=== PATIENT | female | born 1985 | race Caucasian/White ===

== ENCOUNTER 2016-12-25 17:14 | Outpatient (CLI) | payer OTHER ==
[~2016-12-25] VITALS: Ht 162.6 cm; Wt 103.0 kg
[~2016-12-25 17:14] MED LIST: ANUS2.5C2 PR; MOM30SS PO; MOTR200T44 PO; TYLE167L PO
[2016-12-25 17:32] VITALS: BP 139/88
[2016-12-25] MEDS ORDERED: PRENTAB9 PO (17:41)
[2016-12-25] MEDS ORDERED: LABE20TAB PO (17:41)
[2016-12-25] MEDS ORDERED: ECOT81TA5 PO (17:41)
[2016-12-25 18:26] VITALS: BP 122/57
--- NOTE | 2016-12-25 19:19 | IPNPDOC ---
Text Note Date of Service The patient was seen on 12/25/16. NOTE [id number] @ 1911 31 yo presents to L&D from clinic d/t non-reactive NST. She is being monitored in clinic for CHTN and BMI=40 @ 19 wks. This was her first APFT in clinic. S: states she is comfortable. Denies DFM, LOF, VB and CTXs O: VS- WNL, afebrile FHR-150, min-mod variability, no accels, no decels CTX- none A: 31 yo presented to L&D for non-reactive NST in clinic. FHR tracing remains unchanged P: continue prolonged monitoring, consulted with Dr. Orellana, reviewed FHR tracing with him. Agrees with above plan. Dr. Orellana given report @ 192 VS,Fishbone, I+O VS, Fishbone, I+O Vital Signs Date Time Temp Pulse Resp B/P (MAP) Pulse Ox O2 Delivery O2 Flow Rate FiO2 12/25/16 18:26 103 16 122/57 (78) 12/25/16 17:32 99.0 96 Room Air WILTON MITCHELL CNM Dec 25, 2016 19:19
--- NOTE | 2016-12-25 21:10 | REPUSA ---
CLINICAL HISTORY: Abnormal nonstress test. 32 week 2 day gestation. TECHNIQUE: OB biophysical profile with nonstress testing ultrasound COMPARISON: No study for comparison is available at the time of interpretation. Live IUP with heart rate 141 bpm. Vertex position. JUAN RAMON 17.7 cm, within normal limits. Biophysical profile 6/8 (0 breathing) Normal umbilical Doppler, resistive index 0.65, S/D 2.85, normal. No nuchal cord. Posterior placenta without previa or abruption. Cervical length 2.7 cm with closed os. Full anatomic survey was not performed at this time. IMPRESSION: Live IUP. Reduced biophysical profile 10/25, (breathing 0). Otherwise normal findings.
[2016-12-25] MEDS ORDERED: LABETALOL 200 MG TAB PO ONE (22:45)
[2016-12-25] MEDS: BETAMETHASONE SOLUSPAN 6MG/ML INJ 5ML (J0702) IM SCH (22:51)
--- NOTE | 2016-12-26 00:21 | HPE ---
DATE OF ADMISSION: 12/25/2016 A 31-year-old 4, para 3 at 32 and 2 weeks of gestation with a history of chronic hypertension, on labetalol 200 mg by mouth twice a day. She had monitoring today for the first time, and she had an nonstress test (NST) which is nonreactive, and she was here for continuous monitoring. While here, she still had a nonreactive NST, and we elected to go ahead and do a biophysical profile. The biophysical profile shows a live intrauterine , heart 141, vertex, JUAN RAMON was 17.7. No breathing was noted. Doppler flow resistant index was normal. S/D ratio was normal. No cord, the placenta was normal. Cervical length 2.7 cm. Still having a nonreactive NST. Her past history: In 2008, at 40 weeks, spontaneous vaginal delivery, 6 pounds 13 ounces female. In 2010, at 40 weeks, spontaneous vaginal delivery, 7 pounds 3 ounces male. In 2013, at 40 weeks, spontaneous vaginal delivery, gestational diabetes, 7 pounds 5 ounces. She was an aGDM 1. Her labs A+, HIV negative, hepatitis negative, RPR negative. Rubella immune. Varicella immune. Urine negative. Gonorrhea and chlamydia are negative. Her initial 1-hour glucose was 112, her 28 week GTT was 153. She had a 3-hour GTT with a fasting of 95, 1-hour 159, 2-hour 135 and 3-hour 113. Blood pressure today is 122/57, respirations are 16, pulse 103, temperature is 99.0. Her urine is 1.005, pH 5 negative. Her risk factor is an NST that is nonreassuring, her body mass index (BMI) is over 40, she has chronic hypertension, and there was an echogenic focus in the heart. On examination, she is not distressed. Symphysis fundus height is 32. Category II-III strip. With IV fluids, baby perks up and becomes almost category I. Biophysical was 6 out of 8 with no breathing. The rest of the examination is unremarkable. She is normocephalic, atraumatic. Neck: Full range of motion. Pupils equal and reactive to light. Distal pulses are symmetric. No evidence of deep vein thrombosis (DVT), pulmonary embolus (PE) or superficial phlebitis. Lungs are clear bilaterally to bases. No wheezes or rhonchi. No costovertebral angle tenderness. Nontender uterus. Four quadrant bowel sounds are noted. No rashes, lesions or pruritus. No arthralgia, myalgia. No complaints of cough, wheeze, shortness of breath or dyspnea on exertion. No chest pain. No bleeding. Neuro complete. No incontinence, urgency, frequency. No nausea, vomiting, diarrhea or constipation. No diabetic issues by her 3-hour GTT. DIRECTOR OF IT OPERATIONS is unremarkable. Past medical history and surgical history are unremarkable. Family history noncontributory. She does not smoke or drink or abuse drugs. There is no domestic violence. We have a lady at 32 and 2+ with a NST that is nonreassuring, a biophysical of 6 out of 8 with no breathing. Our plan is to continue IV fluids, continuous monitoring, steroid in order to make her steroid complete unless she needs to be delivered, and labetalol continue 200 mg twice a day. The patient and expressed understanding of the situation. We spent an hour discussing this. Patient is undelivered but on continuous monitoring. Copy To: Domenico Lagos [facility]
[2016-12-26 07:22] VITALS: BP 119/68
[2016-12-26] MEDS ORDERED: LABETALOL 200 MG TAB PO SCH (09:00)
[2016-12-26 09:03] VITALS: BP 116/57
[2016-12-26 09:04] VITALS: BP 116/57
[2016-12-26] MEDS: BETAMETHASONE SOLUSPAN 6MG/ML INJ 5ML (J0702) IM SCH (10:54)
--- NOTE | 2016-12-26 16:11 | REP ---
OB ULTRASOUND AND BIOPHYSICAL PROFILE: Real-time sonographic evaluation of the gravid uterus is performed. There is a single living intrauterine gestation with estimated gestational age of 32 weeks 3 days, EDC 02/17/2017. heart rate 142 beats per minute. Amniotic fluid within normal limits, JUAN RAMON 15.5 with a normal range of 8.5 to 24.3. Biophysical profile score is 8 out of 8. S/D ratio 2.54, within normal range. RI 0.61, within normal range. position vertex. Placenta is posterior and grade 1 with no previa or abruption. IMPRESSION: Biophysical profile score 8 out of 8. Signed by Murtaza Potter MD 12/27/2016 01:27 P
== END 2016-12-26 14:26 | disposition home or self-care (01) ==
LOC: M LDO 17:14
PROVIDERS: ATTEND Midwife
DX: O28.8 Other abnormal findings on antenatal screening of mother (principal); O10.913 Unspecified pre-existing hypertension complicating pregnancy, third trimester; Z3A.32 32 weeks gestation of pregnancy; Z79.899 Other long term (current) drug therapy
CPT/HCPCS: 59025; 76815; 76819; 76820; 96372; J0702

== ENCOUNTER 2016-12-28 15:04 | Outpatient (CLI) | payer OTHER ==
[~2016-12-28] VITALS: Ht 162.6 cm; Wt 104.0 kg
[~2016-12-28 15:04] MED LIST changes: +ECOT81TA5 PO; +LABE20TAB PO; +PRENTAB9 PO
[2016-12-28 15:23] VITALS: BP 113/58
[2016-12-28] MEDS ORDERED: PRENTAB9 PO (15:26)
[2016-12-28] MEDS ORDERED: LABE20TAB PO (15:26)
[2016-12-28] MEDS ORDERED: ASPI1TAB15 PO (15:27)
== END 2016-12-28 18:21 | disposition home or self-care (01) ==
LOC: M LDO 15:04
PROVIDERS: ATTEND Obstetrics & Gynecology
DX: O28.3 Abnormal ultrasonic finding on antenatal screening of mother (principal); Z3A.32 32 weeks gestation of pregnancy

== ENCOUNTER → 2017-01-22 | Outpatient (CLI) | payer OTHER ==
[~2017-01-22] MED LIST changes: +ACET50TA PO; +ASPI1TAB15 PO; +COLA100C5 PO; +IBUP-1114 PO; +LABE30TA PO
--- NOTE | 2017-01-22 17:38 | REP ---
Clinical: well-being. Nonreactive stress test. Comparison: 12/26/2016 . Findings: Examination demonstrates a single live advanced in cephalic presentation. motion is identified by technologist. Placenta is noted posterior fundally and grade I without evidence for placenta previa or abruption. Amniotic fluid volume is normal. Gestational age by LMP 36 weeks 2-day with JREEMIAH is 02/17/2017 . FHR equals 140 beats per minute. Biophysical profile score = 8/8. Amniotic fluid index = 16.6 cm (7.6 [birth year]1927) Umbilical cord SD ratio = 2.68 (1.88 - 2.88). Impression: Single live advanced gestation in cephalic presentation. Biophysical profile score equals 8/8. Amniotic fluid index within normal range. Signed by Weston Barber MD 01/22/2017 05:31 P
== END ==
LOC: M RAD 16:21
PROVIDERS: ATTEND Obstetrics & Gynecology
DX: Z34.83 Encounter for supervision of other normal pregnancy, third trimester (principal); Z3A.36 36 weeks gestation of pregnancy

== ENCOUNTER 2017-02-12 11:10 | Inpatient (IN) | payer OTHER ==
[2017-02-12] VITALS (21 sets, daily range): BP systolic 106–150; BP diastolic 55–85
[~2017-02-12] VITALS: Ht 162.6 cm; Wt 111.5 kg
[~2017-02-12 11:10] MED LIST changes: -ACET50TA PO; -COLA100C5 PO; -IBUP-1114 PO; -LABE30TA PO
[2017-02-12] MEDS ORDERED: LR 1,000 ML IV SCH (13:00)
[2017-02-12] MEDS ORDERED: OXYTOCIN DRIP 30 UNITS in APPROPRIATE DILUENT 1 EA IV SCH (13:00)
[2017-02-12] MEDS ORDERED: LACTATED RINGER'S 1000 ML IV ONE (13:15)
[2017-02-12 13:16] LABS: MEAN CORPUSCULAR VOLUME 74.9 fl (80.0-96.0); RED CELL DISTRIBUTION WIDTH 14.5 % (11.5-14.5); WHITE BLOOD COUNT 11.8 10^3/uL (4.0-10.0)
--- NOTE | 2017-02-12 19:52 | HPE ---
DATE OF ADMISSION: 02/12/2017 A 31-year-old 4, para 3, at 39 weeks of gestation admitted for induction of labor because of chronic hypertension, BMI of 41.7 and non-reassuring heart strip. Her risk factors are chronic hypertension and BMI 40.1. PAST HISTORY: 1. 2008: Spontaneous vaginal delivery 40 weeks, 6 pounds 13 ounces female. 2. 2010: At 40 weeks, spontaneous vaginal delivery 7 pounds 3 ounces. 3. 2013: At 40 weeks, spontaneous vaginal delivery 7 pounds 5 ounces with an gestational diabetes mellitus treated with diet (A1GDM) history. HISTORY: Her labs are A positive. HIV negative. Hepatitis negative. RPR negative. Rubella immune. Varicella immune. Urine was negative. Gonorrhea and chlamydia negative. One-hour glucose 112. Her 28-week glucose tolerance test (GTT) was 153. She subsequently had a 3-hour GTT 95, 159, 135, and 113. She is group B Streptococcus (GBS) negative. On examination, no distress. Symphysis fundus height is 41, vertex height -3, posterior thick multiparous os and a category two strip. Blood pressure 130/68, respirations are 20, pulse 81, temperature 98.6. Urine 1005, pH 7, negative, negative. The rest of the examination: She is normocephalic, atraumatic. Neck: Full range of motion. Pupils equal and reactive to light. Reflexes are normal pitting edema plus 1 at the ankles due to weight. Distal pulses symmetric. No evidence of deep venous thrombosis (DVT), pulmonary embolism (PE), or superficial phlebitis. Lungs are clear bilaterally to bases. No wheezes or rhonchi. No costovertebral angle (CVA) tenderness. Symphysis fundus height is appropriate. Four quadrant bowel sounds are noted. No rashes, lesions or pruritus. No arthralgia, myalgia. No complaints of cough, wheezes, shortness of breath or dyspnea on exertion. No chest pain. No bleeding. Neuro complete. No incontinence, urgency or frequency. No nausea, vomiting, diarrhea or constipation. No diabetic issues. Past her three-hour GTT. PAST MEDICAL, SURGICAL AND FAMILY HISTORY: Noncontributory. She does not smoke, drink, abuse drugs. No domestic violence. She is to a soldier. We discussed the plan of management in the form of IV Pitocin as opposed to Cytotec because of the category two strip. I offered her an epidural, which she declined, and plan on an artificial rupture of membranes (AROM) at the appropriate interval.
[2017-02-12] MEDS: LABETALOL 200 MG TAB PO SCH (21:00)
[2017-02-12] MEDS ORDERED: FENTANYL 2MCG/ML ROPIVACAINE 0.2% IN 0.9% NACL 200ML IVBAG As Ordered ONE (23:47)
[2017-02-13] VITALS (23 sets, daily range): BP systolic 118–168; BP diastolic 56–106
[2017-02-13] MEDS ORDERED: FENTANYL/ROPIVACAINE/NACL BAG 200 ML EPIDURAL SCH (00:08)
[2017-02-13] MEDS ORDERED: EPIDURAL/PCA KEYS XX PRN (00:08)
[2017-02-13] MEDS ORDERED: EPIDURAL COMMENT XX SCH (00:08)
[2017-02-13] MEDS ORDERED: ONDANSETRON 4MG/2ML VIAL (J2405) IV PRN (00:08)
[2017-02-13] MEDS ORDERED: LACTATED RINGER'S 1000 ML IV PRN (00:08)
[2017-02-13] MEDS ORDERED: diphenhydrAMINE INJ 50MG/ML VIAL (J1200) IV PRN (00:08)
[2017-02-13] MEDS ORDERED: NALOXONE INJ 0.4 MG/1 ML VIAL (J2310) IV PRN (00:08)
[2017-02-13] MEDS ORDERED: ePHEDrine SULFATE 25 MG/5 ML(5MG/ML) SYRINGE IV PRN (00:08)
[2017-02-13] MEDS ORDERED: REFRIGERATOR IV KEYS XX PRN (00:08)
[2017-02-13] MEDS ORDERED: MEASLES,MUMPS,RUBELLA VACCINE INJ (MMR-II) (90707) SC SCH (01:15)
[2017-02-13] MEDS ORDERED: ANUSOL HC CREAM 30GM TOP PRN (01:15)
[2017-02-13] MEDS ORDERED: MOM 30ML SUSPENSION UDC PO PRN (01:15)
[2017-02-13] MEDS ORDERED: RHOGAM 300 MCG (1500 IU) INJ (J2790) IM SCH (01:15)
[2017-02-13] MEDS ORDERED: ACETAMINOPHEN 500 MG TAB PO PRN (01:15)
[2017-02-13] MEDS ORDERED: DOCUSATE SODIUM 100 MG CAP PO PRN (01:15)
[2017-02-13] MEDS ORDERED: DIBUCAINE 1% OINTMENT 30GM TOP PRN (01:15)
[2017-02-13] MEDS ORDERED: METHYLERGONOVINE MALEATE 0.2 MG TAB PO PRN (01:15)
[2017-02-13 01:32] LABS: CORD GAS ABE A -2.3; CORD GAS ABE V -1.3; CORD GAS HCO3 A 26.1 MEQ/L; CORD GAS HCO3 V 24.6 MEQ/L; CORD GAS O2 SAT A 33.1 %; CORD GAS O2 SAT V 45.1 %; CORD GAS PCO2 A 57.9 mmHg; CORD GAS PCO2 V 45.4 mmHg; CORD GAS PH A 7.271 UNITS; CORD GAS PH V 7.352 UNITS; CORD GAS PO2 A 17.2 mmHg; CORD GAS SBC A 20.8 MEQ/L; CORD GAS TCO2 A 27.8 MEQ/L
[2017-02-13] MEDS: PRENATAL VITAMINS CHEWABLE TABLET PO SCH (09:00)
[2017-02-13] MEDS: LABETALOL 200 MG TAB PO SCH ×2 (09:02→21:41)
[2017-02-13] MEDS: IBUPROFEN 800 MG TAB PO PRN ×2 (09:02→17:56)
--- NOTE | 2017-02-13 16:21 | DN ---
DATE: 02/13/2017 This lady is a 5, para 4 admitted for induction of labor at 39 weeks because of chronic hypertension, BMI over 40. She had Pitocin because of a category two strip, eventually had an AROM draining clear liquor, opted to have an epidural, had a spontaneous vaginal delivery over an intact perineum, a live female weighing 3300 grams, 7 pounds 4 ounces. Arterial and venous pH performed. Placenta delivered spontaneously thereafter. Three-vessel cord. Membranes and tissues intact. Uterus contracted well down on Pitocin. Examination of vagina, cervix and the sphincter were intact. Patient and baby tolerating procedure well.
[2017-02-14 02:00] VITALS: BP 124/75
[2017-02-14 06:00] VITALS: BP 146/82
--- NOTE | 2017-02-14 06:53 | DS.PDOC ---
Discharge Summary General Date of Admission Feb 12, 2017 at 11:10 Date of Discharge [id number] Discharge Summary PROCEDURES PERFORMED DURING STAY: spontaneous vaginal delivery ADMITTING DIAGNOSIS: 1. CHTN 2. Induction DISCHARGE DIAGNOSES: 1. Healthy HOSPITAL COURSE: Admitted for induction on labor and delivery. Uncomplicated, see delivery note. DISCHARGE MEDICATIONS: Motrin, Tylenol, Colace, Lanolin, Dibucaine Physical exam: see note from this morning LABORATORY DATA: Please see below. ACTIVITY: as tolerated. Nothing in vagina for 6 weeks. DIET: regular DISPOSITION:stable TIME SPENT ON DISCHARGE: Greater than 15 minutes. Sessions Vital Signs/I&Os Vital Signs Date Time Temp Pulse Resp B/P (MAP) Pulse Ox O2 Delivery O2 Flow Rate FiO2 02/14/17 06:00 97.9 78 18 146/82 (103) 99 Room Air Discharge Medications Scheduled Labetalol HCl (Labetalol HCl) 200 Mg Tab, 200 MG PO BID, (Reported) Multivitamins/ ( 27-0.8 mg) 1 Tab Tab, 1 TAB PO DAILY, (Reported ) Allergies Coded Allergies: No Known Drug Allergy (Verified Allergy, Unknown, 08/26/12) SESSIONS,TERESA Diggs MD Feb 14, 2017 06:53
--- NOTE | 2017-02-14 06:57 | IPNPDOC ---
Text Note Date of Service The patient was seen on 02/14/17. NOTE PPD1 prog note States feeling well, no complaints. No heavy VB. Pain controlled. Voiding, ambulatory. Bonding well and breast feeding well. VSSAF CTAB RRR Ut at U-2, firm Ext no CCE a/p: Doing well. d/c this morning. To bonding if baby not released. Sessions VS,Neel, I+O VSNeel, I+O Vital Signs Date Time Temp Pulse Resp B/P (MAP) Pulse Ox O2 Delivery O2 Flow Rate FiO2 02/14/17 06:00 97.9 78 18 146/82 (103) 99 Room Air SESSIONS,TERESA Diggs MD Feb 14, 2017 06:57
[2017-02-14 08:09] LABS: MEAN CORPUSCULAR HEMOGLOBIN 23.9 pg (27.0-33.0); MEAN CORPUSCULAR HGB CONC 31.5 g/dl (32.0-36.5); MEAN CORPUSCULAR VOLUME 75.9 fl (80.0-96.0); RED CELL DISTRIBUTION WIDTH 14.6 % (11.5-14.5); WHITE BLOOD COUNT 10.9 10^3/uL (4.0-10.0)
[2017-02-14] MEDS: PRENATAL VITAMINS CHEWABLE TABLET PO SCH (08:42)
[2017-02-14 08:43] VITALS: BP 134/91
[2017-02-14] MEDS: LABETALOL 200 MG TAB PO SCH (08:43)
[2017-02-14] MEDS ORDERED: IBUP-1114 PO (09:17)
[2017-02-14] MEDS ORDERED: ACET50TA PO (09:17)
[2017-02-14] MEDS ORDERED: LABE30TA PO (09:17)
[2017-02-14] MEDS ORDERED: COLA100C5 PO (09:17)
== END 2017-02-14 09:55 | disposition home or self-care (01) | DRG 774 ==
LOC: M LDI 11:10 → M OBS 02-13 03:22
PROVIDERS: ADMIT Obstetrics & Gynecology; ATTEND Obstetrics & Gynecology
PROC: 3E033VJ Introduction of Other Hormone into Peripheral Vein, Percutaneous Approach (ICD-10-PCS; 2017-02-12)
PROC: 10E0XZZ Delivery of Products of Conception, External Approach (ICD-10-PCS; principal; 2017-02-13)
DX: O10.92 Unspecified pre-existing hypertension complicating childbirth (principal); Z68.41 Body mass index [BMI] 40.0-44.9, adult; Z37.0 Single live birth; Z3A.39 39 weeks gestation of pregnancy

== ENCOUNTER → 2020-02-04 | Outpatient (CLI) | payer OTHER ==
[~2020-02-04] MED LIST changes: +ASPI-546 PO; -ASPI1TAB15 PO; +COLA100C5 PO; +IBUP-1114 PO; +LABE300T2 PO; +MAPA500T2 PO
--- NOTE | 2020-02-19 10:59 | REP ---
LEFT KNEE: 02/04/20 CLINICAL: Contusion. TECHNIQUE: AP, lateral, bilateral oblique and sunrise views of the left knee. FINDINGS: Osseous structures, joint spaces and surrounding soft tissues are normal. No acute fracture or dislocation. No evidence for effusion. No subcutaneous emphysema or foreign body. IMPRESSION: Normal left knee radiographs. MTDD
== END ==
LOC: M WUC 09:28
PROVIDERS: ATTEND Physician Assistant
DX: S80.02XA Contusion of left knee, initial encounter (principal); X58.XXXA Exposure to other specified factors, initial encounter; Y92.9 Unspecified place or not applicable